=== PATIENT | male | born 1995 | race Caucasian/White ===

== ENCOUNTER → 2018-10-24 09:21 | Outpatient (CLI) | payer OTHER, SELFPAY ==
--- NOTE | 2018-10-24 | DI.MRI.S_ITS ---
PROCEDURE: MR WRIST RT WO/W CON INDICATIONS: Other specified joint disorders, right wrist TECHNIQUE: Noncontrast coronal proton density fast spin echo and T2 fast spin echo with fat saturation; coronal 3-D gradient echo, axial T1 spin echo and T2 fast spin echo with fat saturation, axial T1 spin echo with fat saturation, sagittal T1 spin echo through the wrist. Post-contrast axial, coronal, and sagittal T1 spin echo with fat saturation through the wrist. COMPARISON: None. FINDINGS: Image quality: Excellent. Bones and cartilage: No suspicious osseous enhancement. The carpal bones are normally aligned. No bone marrow contusions or fractures. No evidence for avascular necrosis. Overlying cartilage surfaces appear normal. Carpal ligaments: The scapholunate and lunotriquetral ligaments appear intact. In the absence of intra-articular contrast, the extrinsic carpal ligaments are not well identified. On sagittal images, the pisohamate ligament appears intact. Triangular fibrocartilage complex: Signal abnormality involving ulnar periphery of regular fibrocartilage is seen near its ulnar insertion concerning for focal triangular fibrocartilage tear in this region. The adjacent meniscal homolog appears normal in the absence of intra-articular contrast. The extensor carpi ulnaris tendon is normal in location and morphology. Tendons and soft tissues: The carpal tunnel structures appear normal, including the median nerve. The ulnar nerve appears normal within Guyon's canal. All six extensor tendon compartments demonstrate normal morphology, without pathologic tendon sheath fluid. 10 x 8 x 5 mm slightly lobulated fluid signal structure dorsal to the extensor carpi radialis brevis tendon is seen and showed no contrast enhancement consistent with a ganglion cyst in this area. No other fluid collection or enhancing soft tissue mass is noted. IMPRESSION: #1. Findings suggestive of a 10 x 8 x 5 mm ganglion cysts dorsal to extensor carpi radialis brevis tendon at the level of proximal scaphoid. No enhancing soft tissue mass is seen. No abnormal intraosseous enhancement. #2. No marrow edema. No fracture or dislocation. No bony erosive changes. #3. Wrist tendons and ligaments are grossly intact. #4. Finding is suspicious for focal perforation involving the triangular fibrocartilage near its ulnar attachment. Dictated by: Michael Lynch M.D. on 10/24/2018 at 13:01 Approved by: Michael Lynch M.D. on 10/24/2018 at 13:06
== END ==
PROVIDERS: Visit Provider Orthopaedic Surgery
DX: M25.831 Other specified joint disorders, right wrist (principal)
CPT/HCPCS: 73223

== ENCOUNTER → 2018-11-28 08:35 | Outpatient (CLI) | payer OTHER, SELFPAY ==
--- NOTE | 2018-11-28 | DI.MRI.S_ITS ---
PROCEDURE: MR SHOULDER RT W CON INDICATIONS: RIGHT SHOULDER PAIN TECHNIQUE: After the administration of 12 mL of dilute intra-articular Gadolinium contrast, oblique coronal T1 and T2 spin echo with fat saturation, oblique sagittal T1 spin echo with and without fat saturation, oblique sagittal T2 fast spin echo with fat saturation, axial T1 spin echo with fat saturation through the shoulder. COMPARISON: None. FINDINGS: Image quality: Excellent. Rotator cuff: Mild infraspinatus tendinopathy and articular sided partial-thickness tear approximately 50% of tendon thickness. There is also low-grade bursal surface fraying. No discrete tear by strict MR criteria. The supraspinatus, teres minor and subscapularis tendons appear grossly intact.. Bones and bursae: No bone marrow contusions or fractures. Mild acromioclavicular joint degeneration. The acromion demonstrates conventional anatomy, without an os acromiale. Capsule and soft tissues: Ill-defined appearance of the posterior labrum on image 10 series 6 in keeping with sequela of tear however this is probably chronic given the absence of any adjacent soft tissue edema.There is minimal adjacent glenoid rim degenerative change/sclerosis. Questionable posterior subluxation of the humeral head relative to glenoid. The long head of the biceps tendon demonstrates normal location and morphology. The rotator interval appears normal, without fibrosis. The coracohumeral ligament is of normal thickness. No intra-articular bodies. IMPRESSION: Mild infraspinatus tendinopathy with partial-thickness articular sided tear and low-grade bursal surface fraying. Posterior labral tear versus degeneration, this finding is likely chronic. Questional/borderline posterior subluxation of the humeral head relative to the glenoid. Dictated by: Joseluis Beal M.D. on 11/28/2018 at 12:57 Approved by: Joseluis Beal M.D. on 11/28/2018 at 13:05
--- NOTE | 2018-11-28 | DI.RAD.S_ITS ---
PROCEDURE: FL SHOULDER INJECTION MR/CT RT INDICATIONS: RIGHT SHOULDER PAIN TECHNIQUE: The indications, alternatives, benefits, risks, and complications of the procedure were explained to the patient. Written informed consent was obtained and placed in the chart. The shoulder was examined fluoroscopically and a site for needle placement chosen for entry into the glenohumeral joint from an anterior approach. The skin was prepped and draped in a sterile fashion, and 1% lidocaine infiltrated from skin down to joint capsule. A spinal needle was inserted into the glenohumeral joint, and a small amount of iodinated contrast media injected to confirm intra-articular placement of the needle tip. This was followed by approximately 12 mL dilute solution of a gadolinium containing MR contrast agent. The needle was removed and a dressing was applied. The patient was given postprocedural instructions and sent to the MR suite for MR imaging. FINDINGS: A single fluoroscopic spot image demonstrates intra-articular location of injected iodinated contrast. IMPRESSION: Successful fluoroscopically guided administration of dilute Gadolinium solution into the shoulder joint for MR arthrogram. Dictated by: Joseluis Beal M.D. on 11/28/2018 at 10:52 Approved by: Joseluis Beal M.D. on 11/28/2018 at 10:52
== END ==
DX: M25.511 Pain in right shoulder (principal); M75.111 Incomplete rotator cuff tear or rupture of right shoulder, not specified as traumatic
CPT/HCPCS: 23350; 73222; 77002

== ENCOUNTER → 2020-10-04 06:18 | Outpatient (CLI) | payer OTHER, SELFPAY ==
--- NOTE | 2020-10-04 | DI.MRI.S_ITS ---
PROCEDURE: MR KNEE RT WO CON INDICATIONS: Pain in right knee TECHNIQUE: Noncontrast sagittal PD fast spin echo and T2 fast spin echo with fat saturation, sagittal 3-D FLASH with fat saturation; coronal T1 spin echo and PD fast spin echo with fat saturation, and axial PD fast spin echo with fat saturation through the knee. COMPARISON: None. FINDINGS: Image quality: Excellent. Menisci: The medial and lateral menisci demonstrate normal morphology and internal signal. The meniscal root ligaments appear intact. Cruciate ligaments: The anterior and posterior cruciate ligaments appear intact. Medial structures: The medial collateral ligament appears intact. The semimembranosus tendon insertions and meniscocapsular junction appear intact. Visualized portions of the pes anserinus tendons appear normal. No abnormal bursal fluid. Lateral structures: The lateral collateral ligament, long and short heads of the biceps femoris tendon appear intact. The popliteus tendon appears intact. No signs of posterolateral corner injury. Iliotibial band appears normal. Anterior structures: There is mild proximal patellar tendinosis. The long gated inferior pole of the patella is seen resulting in a relatively short patellar tendon. The distal quadriceps tendon is intact. No femoral trochlear dysplasia or ventral trochlear prominence. No edema in the infrapatellar fat pad. Bones and cartilage: No bone marrow contusions or fractures. The cartilage of the medial and lateral femorotibial compartments, as well as the patellofemoral compartment, appears normal in thickness. Joint space: There is physiologic knee joint fluid. No significant medial popliteal cyst. Mild nonspecific subcutaneous prepatellar soft tissue edema is noted. IMPRESSION: 1. Mild proximal patellar tendinosis. 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 2. No acute trabecular bone injury. The cruciate and collateral ligaments are intact. There is no meniscal tear. Dictated by: Adrián Rosario M.D. on 10/04/2020 at 8:38 Approved by: Adrián Rosario M.D. on 10/04/2020 at 8:55
== END ==
PROVIDERS: Referring Provider Family Medicine; Visit Provider Family Medicine
DX: M25.561 Pain in right knee (principal)
CPT/HCPCS: 73721